=== PATIENT | male | born 1965 | race Two or more races ===

== ENCOUNTER → 2017-12-21 | Emergency (ER) | payer OTHER ==
[~2017-12-21] VITALS: Ht 167.6 cm; Wt 136.1 kg
[~2017-12-21] MED LIST: HYZAAR; HYZAAR 100-251 EACH PO; HYZAAR 50-12.51 EACH PO; LOTREL 5-10 MG1 CAP; LOTREL 5-10 MG1 CAP PO; NORVASC; NORVASC10 MG PO; NORVASC5 MG PO
== END | disposition home or self-care (01) ==
LOC: ER 11:06
DX: R07.89 Other chest pain (principal); I10 Essential (primary) hypertension

== ENCOUNTER 2018-02-02 14:58 | Outpatient (CLI) | payer OTHER | END 2018-02-02 15:04 | disposition home or self-care (01) | LOC: RAD 501 14:58 | DX: M25.561 Pain in right knee (principal) ==

== ENCOUNTER 2018-06-26 09:07 | Emergency (ER) | payer OTHER ==
[~2018-06-26] VITALS: Ht 167.6 cm; Wt 131.5 kg
[2018-06-26] MEDS ORDERED: NORVASC10 MG (10:13)
== END 2018-06-26 16:32 | disposition home or self-care (01) ==
LOC: ER 09:07 → CPU-OBS 09:42 → ER 09:42
DX: R07.89 Other chest pain (principal); M94.0 Chondrocostal junction syndrome [Tietze]
CPT/HCPCS: G0378; G0379; 93005; 82805; 36600

== ENCOUNTER 2018-08-02 10:28 | Emergency (ER) | payer OTHER ==
[~2018-08-02] VITALS: Ht 167.6 cm; Wt 136.1 kg
[~2018-08-02 10:28] MED LIST changes: +NORVASC10 MG
[2018-08-02] MEDS ORDERED: LASIX20 MG PO (10:49)
[2018-08-02] MEDS ORDERED: HYZAAR 50-12.51 EACH PO (10:49)
== END 2018-08-02 15:22 | disposition home or self-care (01) ==
LOC: ER 10:28 → CPU-OBS 10:29 → ER 10:29
DX: R07.89 Other chest pain (principal); T39.395A Adverse effect of other nonsteroidal anti-inflammatory drugs [NSAID], initial encounter; Y92.89 Other specified places as the place of occurrence of the external cause
CPT/HCPCS: G0378; G0379; 93005

== ENCOUNTER 2018-10-11 10:26 | Emergency (ER) | payer OTHER ==
[~2018-10-11] VITALS: Ht 167.6 cm; Wt 134.7 kg
[~2018-10-11 10:26] MED LIST changes: +LASIX20 MG PO
[2018-10-11] MEDS ORDERED: KETO10TA2 PO (15:35)
[2018-10-11] MEDS ORDERED: BACTRIM DS TAB1 EACH PO (15:35)
== END 2018-10-11 16:48 | disposition home or self-care (01) ==
LOC: ER 10:26
DX: I87.2 Venous insufficiency (chronic) (peripheral) (principal); L03.116 Cellulitis of left lower limb

== ENCOUNTER 2018-11-01 11:52 | Outpatient (CLI) | payer OTHER ==
[~2018-11-01 11:52] MED LIST changes: +BACTRIM DS TAB1 EACH PO; +KETO10TA2 PO
== END 2018-11-01 11:53 | disposition home or self-care (01) ==
LOC: RAD 501 11:52
DX: M76.821 Posterior tibial tendinitis, right leg (principal); M19.071 Primary osteoarthritis, right ankle and foot

== ENCOUNTER 2018-12-12 13:00 | Emergency (ER) | payer OTHER ==
[~2018-12-12] VITALS: Ht 170.2 cm; Wt 127.0 kg
== END 2018-12-12 17:23 | disposition home or self-care (01) ==
LOC: ER 13:00
DX: B34.9 Viral infection, unspecified (principal)

== ENCOUNTER 2019-03-19 09:35 | Emergency (ER) | payer OTHER ==
[~2019-03-19] VITALS: Ht 167.6 cm; Wt 139.7 kg
== END 2019-03-19 12:47 | disposition home or self-care (01) ==
LOC: ER 09:35
DX: J45.998 Other asthma (principal); R51 Headache

== ENCOUNTER 2019-06-26 09:34 | Emergency (ER) | payer OTHER ==
[~2019-06-26] VITALS: Ht 167.6 cm; Wt 136.1 kg
== END 2019-06-26 14:22 | disposition home or self-care (01) ==
LOC: ER 09:34
DX: B34.9 Viral infection, unspecified (principal)

== ENCOUNTER 2019-10-01 13:16 | Emergency (ER) | payer OTHER ==
[~2019-10-01] VITALS: Ht 167.6 cm; Wt 135.2 kg
== END 2019-10-01 19:08 | disposition home or self-care (01) ==
LOC: ER 13:16
DX: S60.221A Contusion of right hand, initial encounter (principal); W18.39XA Other fall on same level, initial encounter; Y93.89 Activity, other specified; Y92.098 Other place in other non-institutional residence as the place of occurrence of the external cause; Y99.8 Other external cause status

== ENCOUNTER 2020-01-17 13:52 | Outpatient (CLI) | payer OTHER | END 2020-01-17 13:55 | disposition home or self-care (01) | LOC: RAD 13:52 | DX: M25.562 Pain in left knee (principal); J20.8 Acute bronchitis due to other specified organisms ==

== ENCOUNTER 2020-05-05 05:38 | Emergency (ER) | payer OTHER ==
[~2020-05-05] VITALS: Ht 167.6 cm; Wt 132.4 kg
[2020-05-05] MEDS ORDERED: REDNESS RELIEF15 M1 OP (06:44)
[2020-05-05] MEDS ORDERED: GARAMYCIN OPHT3.5 GM OP (06:45)
== END 2020-05-05 07:15 | disposition home or self-care (01) ==
LOC: ER 05:38
DX: H10.013 Acute follicular conjunctivitis, bilateral (principal)

== ENCOUNTER 2020-06-02 06:39 | Emergency (ER) | payer OTHER ==
[~2020-06-02] VITALS: Ht 167.6 cm; Wt 134.3 kg
[~2020-06-02 06:39] MED LIST changes: +GARAMYCIN OPHT3.5 GM OP; +REDNESS RELIEF15 M1 OP
[2020-06-02] MEDS ORDERED: ZITHROMAX500 MG PO (18:10)
[2020-06-02] MEDS ORDERED: ALBUTEROL1.25 MG/3 IH (18:10)
[2020-06-02] MEDS ORDERED: MEDROLPACK PO (18:10)
== END 2020-06-02 18:19 | disposition home or self-care (01) ==
LOC: ER 06:39
DX: J45.998 Other asthma (principal); Z03.818 Encounter for observation for suspected exposure to other biological agents ruled out; R06.02 Shortness of breath

== ENCOUNTER 2020-09-03 08:06 | Emergency (ER) | payer OTHER ==
[~2020-09-03] VITALS: Ht 167.6 cm; Wt 134.3 kg
[~2020-09-03 08:06] MED LIST changes: +ALBUTEROL1.25 MG/3 IH; +MEDROLPACK PO; +ZITHROMAX500 MG PO
[2020-09-03] MEDS ORDERED: LASIX40 MG (08:21)
[2020-09-03] MEDS ORDERED: NORVASC10 MG (08:22)
[2020-09-03] MEDS ORDERED: ECOTRIN81 MG PO (15:10)
[2020-09-03] MEDS ORDERED: PEPCID AC20 MG PO (15:10)
== END 2020-09-03 15:20 | disposition home or self-care (01) ==
LOC: ER 08:06 → CPU-OBS 08:07 → ER 08:07
DX: R07.89 Other chest pain (principal)
CPT/HCPCS: G0378; G0379; 93005; 71260; 82805; 36600

== ENCOUNTER → 2020-12-03 | Emergency (ER) | payer OTHER ==
[~2020-12-03] VITALS: Ht 167.6 cm; Wt 133.8 kg
[~2020-12-03] MED LIST changes: +BUDESONIDE0.5 MG/2 M IH; +COMBIVENT RESPIM4 GM IH; +ECOTRIN81 MG PO; +LASIX40 MG; +MUCINEX DM ER1 EAC1 PO; +PEPCID AC20 MG PO
== END | disposition home or self-care (01) ==
LOC: ER 07:51
DX: J45.998 Other asthma (principal); Z03.818 Encounter for observation for suspected exposure to other biological agents ruled out

== ENCOUNTER 2021-01-27 11:10 | Emergency (ER) | payer OTHER ==
[~2021-01-27] VITALS: Ht 167.6 cm; Wt 134.7 kg
[2021-01-27] MEDS ORDERED: AMLODIPINE BESY10 MG PO (11:23)
[2021-01-27] MEDS ORDERED: ORPHENADRINE C100 MG PO (13:18)
[2021-01-27] MEDS ORDERED: KETO10TA2 PO (13:18)
[2021-01-27] MEDS ORDERED: VOLTAREN100 GM TOP (13:18)
[2021-02-05] MEDS ORDERED: HYZAAR 100-251 EACH (07:25)
== END 2021-01-27 13:39 ==
LOC: ER 11:10
DX: M25.571 Pain in right ankle and joints of right foot (principal); S93.401A Sprain of unspecified ligament of right ankle, initial encounter; X58.XXXA Exposure to other specified factors, initial encounter; Y93.9 Activity, unspecified; Y92.9 Unspecified place or not applicable

== ENCOUNTER → 2021-02-05 | Emergency (ER) | payer OTHER ==
[~2021-02-05] VITALS: Ht 167.6 cm; Wt 131.1 kg
[~2021-02-05] MED LIST changes: +AMLODIPINE BESY10 MG PO; +HYZAAR 100-251 EACH; +ORPHENADRINE C100 MG PO; +VOLTAREN100 GM TOP
== END | disposition left against medical advice (07) ==
LOC: ER 07:12
DX: Z53.20 Procedure and treatment not carried out because of patient's decision for unspecified reasons (principal)

== ENCOUNTER 2021-07-10 12:06 | Emergency (ER) | payer OTHER ==
[~2021-07-10] VITALS: Ht 167.6 cm; Wt 133.8 kg
[2021-07-10] MEDS ORDERED: CIDAFLEX TABLE1 EACH (13:01)
[2021-07-10] MEDS ORDERED: ADULT LOW DOSE81 M1 (13:01)
== END 2021-07-10 18:55 | disposition home or self-care (01) ==
LOC: ER 12:06
DX: J06.9 Acute upper respiratory infection, unspecified (principal); Z20.822 Contact with and (suspected) exposure to COVID-19

== ENCOUNTER 2021-08-28 09:00 | Outpatient (CLI) | payer OTHER ==
[~2021-08-28 09:00] MED LIST changes: +ADULT LOW DOSE81 M1; +CIDAFLEX TABLE1 EACH
== END 2021-08-28 09:30 | disposition home or self-care (01) ==
LOC: PPH VACUNA 09:00
PROVIDERS: ATTEND Emergency Medicine Pediatric Emergency Medicine
DX: Z23 Encounter for immunization (principal)

== ENCOUNTER 2021-12-30 11:06 | Emergency (ER) | payer OTHER ==
[~2021-12-30] VITALS: Ht 167.6 cm; Wt 136.1 kg
== END 2021-12-30 17:46 | disposition home or self-care (01) ==
LOC: ER 11:06
DX: R06.02 Shortness of breath (principal); R07.89 Other chest pain; I10 Essential (primary) hypertension

== ENCOUNTER 2022-01-14 07:36 | Outpatient (CLI) | payer OTHER | END 2022-01-14 07:37 | disposition home or self-care (01) | LOC: NUCLEAR 07:36 | PROVIDERS: ATTEND Internal Medicine Cardiovascular Disease | DX: I20.1 Angina pectoris with documented spasm (principal) ==

== ENCOUNTER 2022-03-11 06:38 | Outpatient (CLI) | payer OTHER ==
[2022-03-15] MEDS ORDERED: PLAVIX75 MG PO (08:27)
== END 2022-03-11 07:01 | disposition home or self-care (01) ==
LOC: LAB 06:38
PROVIDERS: ATTEND Orthopaedic Surgery
DX: D64.9 Anemia, unspecified (principal); E88.9 Metabolic disorder, unspecified; D68.8 Other specified coagulation defects; N39.0 Urinary tract infection, site not specified; A49.02 Methicillin resistant Staphylococcus aureus infection, unspecified site; E11.9 Type 2 diabetes mellitus without complications; Z76.89 Persons encountering health services in other specified circumstances; I10 Essential (primary) hypertension; I49.9 Cardiac arrhythmia, unspecified

== ENCOUNTER 2022-03-16 05:22 | Day surgery (SDC) | payer OTHER ==
[~2022-03-16 05:22] MED LIST changes: +PLAVIX75 MG PO
== END 2022-03-16 16:12 | disposition home or self-care (01) ==
LOC: CIR.AMB 05:22
PROVIDERS: ATTEND Orthopaedic Surgery
DX: M76.71 Peroneal tendinitis, right leg (principal); M65.871 Other synovitis and tenosynovitis, right ankle and foot; J45.909 Unspecified asthma, uncomplicated; G47.33 Obstructive sleep apnea (adult) (pediatric); Z99.89 Dependence on other enabling machines and devices; Z71.6 Tobacco abuse counseling; F17.210 Nicotine dependence, cigarettes, uncomplicated; F32.A Depression, unspecified; F10.21 Alcohol dependence, in remission; F14.21 Cocaine dependence, in remission; E66.01 Morbid (severe) obesity due to excess calories; Z79.02 Long term (current) use of antithrombotics/antiplatelets; Z79.82 Long term (current) use of aspirin

== ENCOUNTER 2022-12-14 10:36 | Emergency (ER) | payer OTHER ==
[~2022-12-14] VITALS: Ht 167.6 cm; Wt 131.5 kg
== END 2022-12-14 13:38 | disposition home or self-care (01) ==
LOC: ER 10:36
DX: S93.401A Sprain of unspecified ligament of right ankle, initial encounter (principal); S83.004A Unspecified dislocation of right patella, initial encounter

== ENCOUNTER 2023-05-18 06:27 | Emergency (ER) | payer OTHER ==
[~2023-05-18] VITALS: Ht 167.6 cm; Wt 138.3 kg
[2023-05-18] MEDS ORDERED: AMIODARONE HCL100 MG PO (06:38)
[2023-05-18] MEDS ORDERED: TOPROL XL50 M1 PO (06:38)
[2023-05-18] MEDS ORDERED: CLARITIN10 M1 PO (06:38)
[2023-05-18] MEDS ORDERED: ARNUITY ELLIP100 MCG IH (06:39)
[2023-05-18] MEDS ORDERED: XARELTO20 MG PO (06:44)
[2023-05-18] MEDS ORDERED: XOPENEX CO1.25 MG/0. IH (10:49)
[2023-05-18] MEDS ORDERED: ZITHROMAX TRI-500 MG PO (10:49)
[2023-05-18] MEDS ORDERED: MEDROLPACK PO (10:49)
== END 2023-05-18 10:55 | disposition home or self-care (01) ==
LOC: ER 06:27
DX: J45.21 Mild intermittent asthma with (acute) exacerbation (principal); R06.02 Shortness of breath; Z20.822 Contact with and (suspected) exposure to COVID-19

== ENCOUNTER → 2023-06-29 | Emergency (ER) | payer OTHER ==
[~2023-06-29] VITALS: Ht 167.6 cm; Wt 139.7 kg
[~2023-06-29] MED LIST changes: +AMIODARONE HCL100 MG PO; +ARNUITY ELLIP100 MCG IH; +CLARITIN10 M1 PO; +KAPVAY0.1 MG; +TOPROL XL50 M1 PO; +XARELTO20 MG PO; +XOPENEX CO1.25 MG/0. IH; +ZITHROMAX TRI-500 MG PO
== END | disposition left against medical advice (07) ==
LOC: ER 06:25
DX: Z53.21 Procedure and treatment not carried out due to patient leaving prior to being seen by health care provider (principal)

== ENCOUNTER 2023-07-19 07:14 | Emergency (ER) | payer OTHER ==
[~2023-07-19] VITALS: Ht 167.6 cm; Wt 139.7 kg
== END 2023-07-20 13:18 | disposition home or self-care (01) ==
LOC: ER 07:14
PROVIDERS: Emergency Medicine
DX: R07.89 Other chest pain (principal); I10 Essential (primary) hypertension; J45.909 Unspecified asthma, uncomplicated; L02.818 Cutaneous abscess of other sites; B34.9 Viral infection, unspecified; Z20.822 Contact with and (suspected) exposure to COVID-19

== ENCOUNTER 2023-10-16 14:55 | Emergency (ER) | payer OTHER ==
[~2023-10-16] VITALS: Ht 167.6 cm; Wt 136.1 kg
[2023-10-16 16:51] LABS: HEMATOCRIT 46.6 % (39.0-48.0); HEMOGLOBIN 15.7 g/dL (13-16.00); MEAN CELL VOLUME 89.1 fL (80.0-100.00); MEAN CORPUSCULAR HGB CONC 33.7 g/dl (32.0-36.0); PLATELET COUNT 185 K/uL (150-450); RED BLOOD COUNT 5.23 M/uL (4.00-6.00); RED CELL DISTRIBUTION WIDTH 14.4 % (11.5-14.5)
[2023-10-16 17:11] LABS: CREATININE SERUM 1.03 mg/dL (0.70-1.30); GFR 73.92; POTASSIUM 5.1 mEq/L (3.5-5.1)
[2023-10-16 19:25] LABS: PH,URINE 5.5 (5.0-8.0); URINE APPEARANCE Clear; URINE BILIRRUBIN Negative (NEGATIVE); URINE BLOOD Negative; URINE COLOR Yellow; URINE GLUCOSE Negative (NEGATIVE); URINE LEUKOCYTE Negative; URINE NITRATE Negative; URINE PROTEIN Negative (NEGATIVE); URINE UROBILINOGEN 0.2 E.U./dl
[2023-10-16 19:29] LABS: URINE BACTERIA 6.2 uL (0.0-1933)
[2023-10-16 19:33] LABS: URINE EPITHELIAL CELLS 1.3 uL (0.0-38.8); URINE WBC 1.2 uL (0.0-23.2)
== END 2023-10-17 16:48 | disposition home or self-care (01) ==
LOC: ER 14:55
PROVIDERS: Emergency Medicine
DX: R42 Dizziness and giddiness (principal); I10 Essential (primary) hypertension

== ENCOUNTER 2023-11-01 07:05 | Emergency (ER) | payer OTHER ==
[~2023-11-01] VITALS: Ht 167.6 cm; Wt 138.3 kg
[2023-11-01] MEDS ORDERED: LASIX40 MG PO (07:36)
== END 2023-11-01 09:16 | disposition home or self-care (01) ==
LOC: ER 07:06
DX: M79.671 Pain in right foot (principal); I10 Essential (primary) hypertension

== ENCOUNTER 2024-01-03 09:47 | Emergency (ER) | payer OTHER ==
[~2024-01-03] VITALS: Ht 160 cm; Wt 142.9 kg
[~2024-01-03 09:47] MED LIST changes: +LASIX40 MG PO
[2024-01-03] MEDS ORDERED: 0.9 % SODIUM CHLORIDE 1,000 ML IV SCH (11:45)
[2024-01-03 12:13] LABS: HEMOGLOBIN 15.6 g/dL (13-16.00); MEAN CELL VOLUME 88.8 fL (80.0-100.00); MEAN CORPUSCULAR HEMOGLOBIN 29.5 pg (27.00-32.0); MEAN CORPUSCULAR HGB CONC 33.2 g/dl (32.0-36.0); PLATELET COUNT 160 K/uL (150-450); RED BLOOD COUNT 5.29 M/uL (4.00-6.00); RED CELL DISTRIBUTION WIDTH 14.2 % (11.5-14.5)
[2024-01-03 12:50] LABS: ALBUMIN 3.6 gm/dL (3.4-5.0); BILIRUBIN TOTAL 0.46 mg/dL (0.3-1.2); CREATININE SERUM 0.93 mg/dL (0.70-1.30); GFR 83.16; GLOBULINA 3.9 G/DL (2.4-3.5); POTASSIUM 4.73 mEq/L (3.5-5.1); TOTAL PROTEIN 7.5 gm/dL (6.4-8.2)
[2024-01-03 13:03] LABS: INR 1.07; PARTIAL THROMBOPLASTIN TIME 29.1 SECONDS (22.0-34.0); PROTHROMBIN TIME 11.2 SECONDS (9.0-11.5)
[2024-01-03 13:34] LABS: PH,URINE 5.5 (5.0-8.0); URINE APPEARANCE Clear; URINE BILIRRUBIN Negative (NEGATIVE); URINE BLOOD Negative; URINE COLOR Yellow; URINE GLUCOSE Negative (NEGATIVE); URINE LEUKOCYTE Negative; URINE NITRATE Negative; URINE PROTEIN Negative (NEGATIVE); URINE UROBILINOGEN 0.2 E.U./dl
[2024-01-03 13:37] LABS: URINE BACTERIA 11.3 uL (0.0-1933); URINE WBC 3.7 uL (0.0-23.2)
[2024-01-03 13:38] LABS: URINE RBC 1.8 uL (0.0-20.8)
[2024-01-03] MEDS ORDERED: KETOROLAC TROMETHAMINE 30 MG VIAL IV ONE (13:45)
[2024-01-03] MEDS ORDERED: 8 HOUR PAIN RE650 M1 PO (17:53)
[2024-01-03] MEDS ORDERED: 8HR ARTHRITIS650 M1 PO (17:54)
== END 2024-01-03 18:22 | disposition home or self-care (01) ==
LOC: ER 09:47
PROVIDERS: General Practice
DX: R10.11 Right upper quadrant pain (principal); I48.91 Unspecified atrial fibrillation; G47.33 Obstructive sleep apnea (adult) (pediatric); I25.10 Atherosclerotic heart disease of native coronary artery without angina pectoris; K57.30 Diverticulosis of large intestine without perforation or abscess without bleeding

== ENCOUNTER 2024-01-12 10:24 | Outpatient (CLI) | payer OTHER ==
[~2024-01-12 10:24] MED LIST changes: +8 HOUR PAIN RE650 M1 PO; +8HR ARTHRITIS650 M1 PO
== END 2024-01-12 10:35 | disposition home or self-care (01) ==
LOC: SONOGRAMA 10:24
PROVIDERS: ATTEND Physical Medicine & Rehabilitation
DX: S96.912A Strain of unspecified muscle and tendon at ankle and foot level, left foot, initial encounter (principal); J44.1 Chronic obstructive pulmonary disease with (acute) exacerbation

== ENCOUNTER 2024-05-21 08:35 | Emergency (ER) | payer OTHER ==
[~2024-05-21] VITALS: Ht 167.6 cm; Wt 140.6 kg
[2024-05-21] MEDS ORDERED: KETOROLAC TROMETHAMINE 30 MG VIAL IM STA (09:22)
[2024-05-21 10:02] LABS: HEMATOCRIT 44.4 % (39.0-48.0); HEMOGLOBIN 14.8 g/dL (13-16.00); MEAN CELL VOLUME 89.6 fL (80.0-100.00); MEAN CORPUSCULAR HGB CONC 33.5 g/dl (32.0-36.0); PLATELET COUNT 147 K/uL (150-450); RED BLOOD COUNT 4.95 M/uL (4.00-6.00); RED CELL DISTRIBUTION WIDTH 14.3 % (11.5-14.5)
[2024-05-21 10:11] LABS: ERYTHROCYTE SEDIMENTATION RATE 3 mm/hr
[2024-05-21] MEDS ORDERED: CELEBREX200MG PO (12:02)
[2024-05-21] MEDS ORDERED: DUI500 PO (12:02)
== END 2024-05-21 12:39 | disposition home or self-care (01) ==
LOC: ER 08:36
PROVIDERS: Emergency Medicine
DX: L03.115 Cellulitis of right lower limb (principal); M72.2 Plantar fascial fibromatosis; I10 Essential (primary) hypertension

== ENCOUNTER 2024-06-18 06:22 | Inpatient (IN) | payer OTHER ==
[~2024-06-18] VITALS: Ht 167.6 cm; Wt 143.3 kg
[~2024-06-18 06:22] MED LIST changes: +CELEBREX200MG PO; +DUI500 PO
[2024-06-18] MEDS ORDERED: GUAIFENESIN 200 MG/10 ML BLIST.PACK PO STA (08:44)
[2024-06-18] MEDS ORDERED: GUAIFENESIN 200 MG/10 ML BLIST.PACK PO ONE (08:58)
[2024-06-18 09:56] LABS: HEMATOCRIT 48.3 % (39.0-48.0); HEMOGLOBIN 16.1 g/dL (13-16.00); MEAN CELL VOLUME 89.9 fL (80.0-100.00); MEAN CORPUSCULAR HGB CONC 33.4 g/dl (32.0-36.0); PLATELET COUNT 144 K/uL (150-450); RED BLOOD COUNT 5.37 M/uL (4.00-6.00); RED CELL DISTRIBUTION WIDTH 14.1 % (11.5-14.5)
[2024-06-18] MEDS ORDERED: levoFLOXacin IN DEXTROSE 5 % 5 MG/ML PIGGYBAG IV STA (13:50)
[2024-06-18] MEDS ORDERED: BUDESONIDE 0.5 MG/2 ML AMPUL.NEB IH STA (13:54)
[2024-06-18] MEDS ORDERED: METHYLPREDNISOLONE SOD SUCC 125 MG VIAL IV STA (13:54)
[2024-06-18] MEDS ORDERED: IPRATROPIUM BROMIDE 0.5 MG/2.5 ML AMPUL.NEB IH SCH ×2 (14:00→20:02)
[2024-06-18] MEDS ORDERED: LEVALBUTEROL HCL 1.25 MG/3 ML SOLUTION IH SCH (14:00)
[2024-06-18] MEDS ORDERED: METHYLPREDNISOLONE SOD SUCC 125 MG VIAL ONE ×2 (15:02→20:59)
[2024-06-18] MEDS ORDERED: BUDESONIDE 0.5 MG/2 ML AMPUL.NEB IH ONE (15:04)
[2024-06-18] MEDS ORDERED: IPRATROPIUM BROMIDE 0.5 MG/2.5 ML AMPUL.NEB IH ONE (15:04)
[2024-06-18] MEDS ORDERED: LEVALBUTEROL HCL 0.63 MG/3 ML SOLUTION IH ONE (15:05)
[2024-06-18 16:16] LABS: CALCIUM 9.8 mg/dL (8.5-10.1); CREATININE SERUM 1.19 mg/dL (0.70-1.30); GFR 62.36; POTASSIUM 3.97 mEq/L (3.5-5.1)
[2024-06-18 17:50] LABS: ABG PH 7.434 (7.35-7.45); ABG PO2 66.7 mmHg (80-100); ABG pCO2 30.1 mmHg (35-45); BASE EXCESS -3.3 mmol/l; BICARBONATE 19.7 mmol/l (23-25); SaO2 93.4 %; Tco2 20.6 mmol/l
[2024-06-18 17:51] LABS: allen test SATISFACTORY; o2 21 %; puncture site RADIAL RIGHT
[2024-06-18 19:34] LABS: URINE BACTERIA 28.9 uL (0.0-1933); URINE RBC 5.1 uL (0.0-20.8); URINE WBC 6.3 uL (0.0-23.2)
[2024-06-18 19:44] LABS: URINE APPEARANCE Cloudy; URINE BILIRRUBIN Negative (NEGATIVE); URINE BLOOD Negative; URINE COLOR Yellow; URINE GLUCOSE Negative (NEGATIVE); URINE KETONE Negative (NEGATIVE); URINE LEUKOCYTE Negative; URINE NITRATE Negative; URINE PROTEIN 30 (NEGATIVE); URINE UROBILINOGEN 0.2 E.U./dl
[2024-06-18] MEDS ORDERED: VANCOMYCIN HCL 1,000 MG VIAL IV SCH (19:58)
[2024-06-18] MEDS ORDERED: ACETAMINOPHEN 500 MG GEL..CAP PO PRN (20:00)
[2024-06-18] MEDS ORDERED: AMIODARONE HCL 50 MG/ML AMPUL IV ONE (20:00)
[2024-06-18] MEDS ORDERED: METHYLPREDNISOLONE SOD SUCC 125 MG VIAL IV ONE (20:30)
[2024-06-18] MEDS ORDERED: FUROsemide 20 MG/2 ML VIAL ONE (20:58)
[2024-06-18] MEDS ORDERED: VANCOMYCIN HCL 1,000 MG VIAL ONE (20:59)
[2024-06-18] MEDS ORDERED: FUROsemide 20 MG/2 ML VIAL IV SCH (21:00)
[2024-06-18 21:18] LABS: PARTIAL THROMBOPLASTIN TIME 37.4 SECONDS (22.0-34.0)
[2024-06-18 21:45] LABS: D DIMER 0.96 MG/L
[2024-06-18 21:46] LABS: INR 1.48
[2024-06-18 21:47] LABS: PROTHROMBIN TIME 15.1 SECONDS (9.0-11.5)
[2024-06-19] MEDS ORDERED: ACETAMINOPHEN 500 MG GEL..CAP PO ONE (03:48)
[2024-06-19] MEDS ORDERED: PANTOPRAZOLE SODIUM 40 MG/VIAL VIAL IV SCH (09:00)
[2024-06-19] MEDS ORDERED: CEFTRIAXONE SODIUM 2,000 MG in 0.9 % SODIUM CHLORIDE 100 ML IV SCH (09:00)
[2024-06-19] MEDS ORDERED: RIVAROXABAN 20 MG TABLET PO SCH (09:00)
[2024-06-19] MEDS ORDERED: RINGERS SOLUTION,LACTATED 1,000 ML IV SCH (12:45)
[2024-06-19] MEDS ORDERED: IPRATROPIUM BROMIDE 0.5 MG/2.5 ML AMPUL.NEB IH ONE (16:47)
[2024-06-19] MEDS ORDERED: LINEZOLID IN DEXTROSE 5% 300 ML IV SCH (17:00)
[2024-06-19] MEDS ORDERED: METHYLPREDNISOLONE SOD SUCC 40 MG VIAL ONE (20:38)
[2024-06-19] MEDS ORDERED: METHYLPREDNISOLONE SOD SUCC 40 MG VIAL IV SCH (21:00)
[2024-06-20] MEDS ORDERED: AMIODARONE IN DEXTROSE,ISO-OSM 360 MG/200 ML IV.SOLN IV ONE (02:42)
[2024-06-20 06:37] LABS: HEMATOCRIT 45.1 % (39.0-48.0); HEMOGLOBIN 15.3 g/dL (13-16.00); MEAN CELL VOLUME 90.6 fL (80.0-100.00); MEAN CORPUSCULAR HEMOGLOBIN 30.7 pg (27.00-32.0); MEAN CORPUSCULAR HGB CONC 33.9 g/dl (32.0-36.0); RED BLOOD COUNT 4.98 M/uL (4.00-6.00); RED CELL DISTRIBUTION WIDTH 13.7 % (11.5-14.5)
[2024-06-20 06:38] LABS: PLATELET COUNT 129 K/uL (150-450)
[2024-06-20 07:22] LABS: BILIRUBIN TOTAL 0.49 mg/dL (0.3-1.2); CALCIUM 9.3 mg/dL (8.5-10.1); CREATININE SERUM 0.88 mg/dL (0.70-1.30); GFR 88.33; GLOBULINA 3.6 G/DL (2.4-3.5); MAGNESIUM 2.4 mg/dL (1.8-2.4); PHOSPHOROUS 2.7 mg/dL (2.5-4.9); POTASSIUM 4.59 mEq/L (3.5-5.1); TOTAL PROTEIN 6.6 gm/dL (6.4-8.2)
[2024-06-20] MEDS ORDERED: 0.9 % SODIUM CHLORIDE 1,000 ML IV SCH (09:00)
[2024-06-20] MEDS ORDERED: FUROsemide 20 MG/2 ML VIAL IV SCH (09:00)
[2024-06-20] MEDS ORDERED: PHYTONADIONE 10 MG/ML AMPUL IM SCH (09:02)
[2024-06-20] MEDS ORDERED: PIPERACILLIN/TAZOBACTAM SODIUM 4.5 GM in 0.9 % SODIUM CHLORIDE 100 ML IV SCH (09:02)
[2024-06-20] MEDS ORDERED: PIPERACILLIN/TAZOBACTAM SODIUM 4.5 GM VIAL IV ONE (10:02)
[2024-06-20] MEDS ORDERED: METOPROLOL TARTRATE 5MG/5ML AMPUL IV SCH (23:00)
[2024-06-21] MEDS ORDERED: METOPROLOL TARTRATE 5MG/5ML AMPUL IV ONE ×2 (00:53→01:07)
[2024-06-21] MEDS ORDERED: METOPROLOL TARTRATE 50 MG TABLET PO SCH (01:00)
[2024-06-21] MEDS ORDERED: METOPROLOL TARTRATE 50 MG TABLET PO ONE (03:05)
[2024-06-21] MEDS ORDERED: INSULIN LISPRO 1,000 UNIT/10 ML UNITS SUBCUTANEO PRN (08:45)
[2024-06-21] MEDS ORDERED: DEXTROSE 50 % IN WATER 0.5 G/ML DISP.SYRIN IV PRN (08:45)
[2024-06-21] MEDS ORDERED: FUROsemide 20 MG TABLET PO SCH (09:00)
[2024-06-21 11:04] LABS: HEMATOCRIT 44.9 % (39.0-48.0); HEMOGLOBIN 14.9 g/dL (13-16.00); MEAN CORPUSCULAR HEMOGLOBIN 29.9 pg (27.00-32.0); MEAN CORPUSCULAR HGB CONC 33.2 g/dl (32.0-36.0); PLATELET COUNT 143 K/uL (150-450); RED BLOOD COUNT 4.99 M/uL (4.00-6.00); RED CELL DISTRIBUTION WIDTH 14.4 % (11.5-14.5)
[2024-06-21 11:56] LABS: CALCIUM 8.9 mg/dL (8.5-10.1); CREATININE SERUM 1.01 mg/dL (0.70-1.30); FREE TRIODOTIRONINE 1.3 pg/ml (2.18-3.98); GFR 75.35; MAGNESIUM 2.3 mg/dL (1.8-2.4); PHOSPHOROUS 2.5 mg/dL (2.5-4.9); POTASSIUM 4.38 mEq/L (3.5-5.1); T4 FREE 1.32 NG/ML (0.76-1.46)
[2024-06-21 12:42] LABS: TSH 0.302 uIU/mL (0.358-3.74)
[2024-06-21] MEDS ORDERED: ENALAPRILAT DIHYDRATE 1.25 MG/ML VIAL IV NR (16:30)
[2024-06-21] MEDS ORDERED: IPRATROPIUM BROMIDE 0.5 MG/2.5 ML AMPUL.NEB IH SCH (17:00)
[2024-06-21] MEDS ORDERED: BUDESONIDE 0.5 MG/2 ML AMPUL.NEB IH SCH (21:00)
[2024-06-21] MEDS ORDERED: METOPROLOL TARTRATE 50 MG TABLET PO STA (21:33)
[2024-06-21] MEDS ORDERED: hydrALAZINE HCL 20 MG VIAL IV PRN (21:45)
[2024-06-22] MEDS ORDERED: SODIUM CL 0.9% 100 ML IV.SOLN IV ONE (00:31)
[2024-06-22] MEDS ORDERED: METOPROLOL TARTRATE 100 MG TABLET PO SCH (01:00)
[2024-06-22] MEDS ORDERED: AMIODARONE HCL 200 MG TABLET PO SCH (09:00)
[2024-06-22] MEDS ORDERED: DIGOXIN 0.25 MG/ML AMPUL IV STA (10:39)
[2024-06-22] MEDS ORDERED: SODIUM CHLORIDE 0.45 % 1,000 ML IV SCH (10:45)
[2024-06-22] MEDS ORDERED: PIPERACILLIN/TAZOBACTAM SODIUM 4.5 GM VIAL IV ONE ×2 (12:22→12:39)
[2024-06-22 12:40] LABS: ABG PH 7.435 (7.35-7.45); ABG PO2 91.6 mmHg (80-100); ABG pCO2 43.1 mmHg (35-45); BASE EXCESS 3.6 mmol/l; BICARBONATE 28.3 mmol/l (23-25); SaO2 97.4 %; Tco2 29.6 mmol/l
[2024-06-22 12:41] LABS: allen test SATISFACTORY; o2 32 %; puncture site RADIAL RIGHT
[2024-06-22] MEDS ORDERED: DIGOXIN 0.25 MG/ML AMPUL IV SCH (14:00)
[2024-06-23 07:36] LABS: ALBUMIN 2.8 gm/dL (3.4-5.0); BILIRUBIN TOTAL 0.82 mg/dL (0.3-1.2); CALCIUM 8.5 mg/dL (8.5-10.1); CREATININE SERUM 1.07 mg/dL (0.70-1.30); GFR 70.49; GLOBULINA 3.1 G/DL (2.4-3.5); MAGNESIUM 2.4 mg/dL (1.8-2.4); PHOSPHOROUS 3.8 mg/dL (2.5-4.9); POTASSIUM 3.9 mEq/L (3.5-5.1); TOTAL PROTEIN 5.9 gm/dL (6.4-8.2)
[2024-06-23 07:37] LABS: C-REACTIVE PROTEIN 2.67 MG/DL (0.00-0.29)
[2024-06-23 08:45] LABS: HEMATOCRIT 45.2 % (39.0-48.0); HEMOGLOBIN 15.2 g/dL (13-16.00); MEAN CELL VOLUME 90.9 fL (80.0-100.00); MEAN CORPUSCULAR HEMOGLOBIN 30.6 pg (27.00-32.0); MEAN CORPUSCULAR HGB CONC 33.6 g/dl (32.0-36.0); PLATELET COUNT 150 K/uL (150-450); RED BLOOD COUNT 4.97 M/uL (4.00-6.00); RED CELL DISTRIBUTION WIDTH 13.7 % (11.5-14.5)
== END 2024-06-25 20:04 | disposition home or self-care (01) | DRG 872 ==
LOC: ER 06:23 → ICU-2 20:52 → ICU 06-20 03:48 → MEDJ 06-23 18:05
PROVIDERS: General Practice; Internal Medicine Infectious Disease; ADMIT Internal Medicine; ATTEND Internal Medicine
PROC: BB24ZZZ Computerized Tomography (CT Scan) of Bilateral Lungs (ICD-10-PCS; principal; 2024-06-18)
PROC: B54DZZZ Ultrasonography of Bilateral Lower Extremity Veins (ICD-10-PCS; 2024-06-18)
PROC: B246ZZZ Ultrasonography of Right and Left Heart (ICD-10-PCS; 2024-06-19)
PROC: 5A0935A Assistance with Respiratory Ventilation, Less than 24 Consecutive Hours, High Flow/Velocity Cannula (ICD-10-PCS; 2024-06-19)
PROC: 3E0F7GC Introduction of Other Therapeutic Substance into Respiratory Tract, Via Natural or Artificial Opening (ICD-10-PCS; 2024-06-19)
PROC: 4A12X4Z Monitoring of Cardiac Electrical Activity, External Approach (ICD-10-PCS; 2024-06-23)
DX: A41.9 Sepsis, unspecified organism (principal); L03.115 Cellulitis of right lower limb; J44.1 Chronic obstructive pulmonary disease with (acute) exacerbation; Z68.43 Body mass index [BMI] 50.0-59.9, adult; I48.91 Unspecified atrial fibrillation; I10 Essential (primary) hypertension; E78.49 Other hyperlipidemia; I25.10 Atherosclerotic heart disease of native coronary artery without angina pectoris; Z72.0 Tobacco use; E66.09 Other obesity due to excess calories

== ENCOUNTER 2024-11-02 08:39 | Outpatient (CLI) | payer OTHER | END 2024-11-02 08:48 | disposition home or self-care (01) | LOC: RAD 08:39 | PROVIDERS: ATTEND Chiropractor | DX: M99.01 Segmental and somatic dysfunction of cervical region (principal); M99.02 Segmental and somatic dysfunction of thoracic region; M99.03 Segmental and somatic dysfunction of lumbar region ==

== ENCOUNTER 2025-07-04 18:21 | Emergency (ER) | payer OTHER ==
[~2025-07-04] VITALS: Ht 167.6 cm; Wt 137.0 kg
[2025-07-04] MEDS ORDERED: ELIQUIS2.5 MG PO (18:57)
[2025-07-04] MEDS ORDERED: KETOROLAC TROMETHAMINE 60 MG VIAL IM ONE (19:30)
[2025-07-04] MEDS ORDERED: TRAMADOL HCL 50 MG TABLET PO ONE (19:30)
== END 2025-07-04 19:38 | disposition home or self-care (01) ==
LOC: ER 18:21
DX: M25.571 Pain in right ankle and joints of right foot (principal); I10 Essential (primary) hypertension